=== PATIENT | male | born 1965 | race Caucasian/White ===

== ENCOUNTER 2018-02-24 17:45 | Emergency (ER) | payer SELFPAY ==
[2018-02-24] MEDS ORDERED: IPRATROPIUM/ALBUTEROL SULFATE 3 ML AMPUL.NEB NEB ONE (18:04)
[2018-02-24] MEDS: IPRATROPIUM/ALBUTEROL SULFATE 3 ML AMPUL.NEB NEB ONE ×2 (18:30→18:49)
--- NOTE | 2018-02-24 19:17 | ED Physician Documentation ---
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 Pt presents to the ED c/o productive cough x 2 weeks and shortness of breath with exertion that started today. pt reports malaise. Pt has had Hx of multiple chest tubes many years ago. Pt reports he had a procedure to correct and adhere Left lung to chest wall. pt poor historian. record reviewed. Pt has Hx of COPD. pt reports he uses an albuterol nebulizer as needed and it is not helping pt denies current chest pain, dyspnea, syncope/near syncope, headache, dizziness, visual disturbances, n/v/d, fever/chills, rash, sick contacts, dysuria, trauma. melena or hematochezia, bleeding or easy bruising, change in bowel or bladder function. anxiety or depression. ROS Negative unless otherwise specified. Onset: hours - ROS CONST: no problems - PAST HX Past History: none, COPD, other Surgeries/Procedures: other (chest tube) Allergies/Adverse Reactions: Allergies Allergy/AdvReac Type Severity Reaction Status Date / Time No Known Allergies Allergy Verified 02/24/18 18:05 Home Medications: Ambulatory Orders Medication Instructions Recorded NK 02/24/18 - SOCIAL HX Smoking History: greater than 1 pack/day Alcohol Use: none Drug Use: none - FAMILY HX Family History: No - VITAL SIGNS Vital Signs: Vital Signs Temp Pulse Resp BP Pulse Ox 97.5 F L 78 20 126/84 96 02/24/18 17:50 02/24/18 17:50 02/24/18 17:50 02/24/18 17:50 02/24/18 17:50 - REVIEWED ASSESSMENTS Nursing Assessment Reviewed: Yes Vitals Reviewed: Yes ED Results Lab/Radiology - Orders Orders: ED Orders Category Date Time Status CBC PLATELETS NO DIFF Stat Lab 02/24/18 18:45 Received CMP [CMP] Stat Lab 02/24/18 18:45 Received INFLUENZA A&B Stat Lab 02/24/18 Uncollected Rapid Strep [GRP A STREP SCREEN] Stat Lab 02/24/18 Ordered Ipratropium/Albuterol Sulfate [Duoneb] Med 02/24/18 18:24 Discontinued 3 ml NEB .STK-MED ONE Ipratropium/Albuterol Sulfate [Duoneb] Med 02/24/18 18:04 Discontinued 3 ml NEB NOW ONE General Adult Physical Exam - PHYSICAL EXAM GENERAL APPEARANCE: no distress EENT: eye inspection normal, ENT inspection normal, pharynx normal, no signs of dehydration, LUCIEN, no nystagmus, TM's nml NECK: normal inspection, thyroid normal RESPIRATORY: no resp distress, chest non-tender, breath sounds normal, wheezes CVS: reg rate & rhythm, heart sounds normal, equal pulses, no murmur, no gallop, PMI nml, no JVD, no friction rub, 24 ABDOMEN: soft, no organomegaly, normal bowel sounds, no abdominal bruit, no distension SKIN: normal color, warm/dry, NR, INT, PAL, DR EXTREMITIES: non-tender, normal range of motion, no evidence of injury, no edema, J, 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 do not work for 2 days. Azithromycin 250 mg: once daily for 4 days. you had your first dose in the emergency dept. Continues to work days 6-10 DuoNeb: One Vial via Nebulizer every 4-6 hours as needed for shortness of breath Follow up with primary care in 1 week or before if not improving as expected. seek medical care immediately if feeling faint or fainting, difficulty breathing, feeling faint or fainting, increased rash, chest pain, shortness of breath, or fever not controlled by tylenol/motrin or any concern. PLEASE UNDERSTAND THAT THIS IS AN EMERGENCY EVALUATION FOR YOUR COMPLAINT AND BY NATURE IS LIMITED AND NOT A SUBSTITUTE FOR ONGOING MEDICAL CARE. EVEN THOUGH TEST RESULTS AND TREATMENT PLAN WERE EXPLAINED THERE MAY BE A NEED FOR ADDITIONAL TESTING TO FULLY DETERMINE THE EXTENT OF YOUR ILLNESS/INJURY/OR CONCERN SO YOU SHOULD CONTACT AND OR ESTABLISH WITH A PRIMARY CARE PROVIDER (OR REFERRAL DOCTOR IF APPLICABLE) FOR AN APPOINTMENT SOON POSSIBLE. Condition: Good Disposition: 01 HOME, SELF-CARE Decision to Admit: NO Date of Decison to Admit: 02/24/18 Decision Time: 19:14
[2018-02-24] MEDS ORDERED: AZITHROMYCIN 250 MG TABLET PO ONE (19:21)
[2018-02-24 19:45] VITALS: BP 127/85
[2018-02-25 08:14] LABS: MEAN CORPUSCULAR HEMOGLOBIN 30.6 pg (28.0-34.0); eGFR (Non-African) > 60
== END 2018-02-24 19:45 | disposition home or self-care (01) ==
LOC: ED 17:45
DX: J40 Bronchitis, not specified as acute or chronic (principal); Z72.0 Tobacco use
CPT/HCPCS: 36415; 80053; 85027; 87070; 87400; 87880; 94640; 99283; 99284; S1016